=== PATIENT | female | born 1955 | race Caucasian/White ===

== ENCOUNTER 2016-11-13 04:07 | Inpatient (IN) | payer MEDICARE ==
[2016-11-13] VITALS (21 sets, daily range): BP systolic 96–153; BP diastolic 43–74; PULSE 68–95; RESP 15–25; O2SAT 95–100
[2016-11-13] MEDS ORDERED: 0.9% Sodium Chloride 1,000 ML ONE (04:17)
[2016-11-13] MEDS ORDERED: Heparin 1,000 Unit/mL 10 mL Inj ONE ×2 (04:17→09:08)
[2016-11-13] MEDS ORDERED: Heparin 1,000 Units/500 mL NS Premix IV ONE ×2 (04:17→09:11)
--- NOTE | 2016-11-13 04:19 | ED.REPORT ---
HPI-Chest Pain 40 and Over Date of Service Nov 13, 2016 ED Provider: Abdulaziz Aviles MD Patient is a 61 year old female with a history of transverse myelitis who presents to the ED via EMS after she awoke with severe chest pain this morning. Patient reports that she first experienced 10/10 crushing substernal chest pain yesterday evening, which resolved after 5-10 minutes. She states that the pain radiated to both of her arms, up to her neck, jaw, and to her ears. However tonight the patient experienced this again, but this time the chest pain last for much longer. The patient became nauseated and 911 was called. She received Plavix, aspirin, and nitroglycerin 2x from EMS. Patient reports nearly complete resolution of her pain following these medications. EMS was concerned for a STEMI on initial EKG, with EKG in the ED no longer showing these changes. The patient denies a history of coronary artery disease or prior myocardial infarction. Patient states that she is partially quadriplegic due to her transverse myelitis. Patient denies shortness of breath. Nursing Notes Stated Complaint: STEMI Chief Complaint: Chest Pain Nursing Notes Reviewed: Yes Allergies: Coded Allergies: codeine (Verified Allergy, Unknown, 11/13/16) General Time Seen by MD: 04:08 Chief Complaint Chest pain Hx Obtained From: Patient Arrived By: Ambulance Sudden in Onset?: No Onset Occurred: 16 - 30 minutes ago Symptom Duration: 1 - 15 minutes Location: : Substernal Quality: Painful (crushing) Severity: Current: Pain level 1 out of 10 Severity: Maximum: Pain level 10 out of 10 Recent Healthcare: No recent doctor visit, No recent hospitalization Similar Sx Previous: Yes Past Medical History Past Medical History transverse myelitis partial quadriplegic Past Surgical History baclofen pump implant Smoking History Unknown if Ever Smoker Social History Other Social History: Good social support, , Local resident Review of Systems Respiratory: Denies: Non-productive cough, Shortness of breath Cardiovascular: Reports: Chest pain, Denies: Palpitations GI: Reports: Nausea, Denies: Vomiting Musculoskeletal: Reports: Extremity pain, Neck pain Complete sys rev & neg: except as marked. Physical Exam Initial Vital Signs Vital Signs (First) Date Time Temp Pulse Resp B/P Pulse Ox O2 Delivery O2 Flow Rate FiO2 11/13/16 04:10 36.8 84 21 140/68 100 Nasal Cannula 2 Initial VS: Reviewed, Vital signs normal Head / Eyes: Atraumatic, Normocephalic, PERRL ENT: Mucous membranes moist, Conjunctiva normal, No scleral icterus Skin: Warm, Dry, No cyanosis Neurologic: Alert, Oriented, Nonfocal Psychiatric: Mood/affect normal, Behavior normal, Normal thought content General/Constitutional: Awake, Alert, No acute distress Respiratory / Chest: Breath sounds NL, Breath sounds = bilat, No respiratory distress, No rales, No rhonchi, No wheezing Cardiovascular: Heart rate NL, Regular rhythm, Heart sounds NL, No gallop, No murmurs, No rubs Abdomen: Soft, Non-tender, No guarding, No rebound Neck: Supple, No JVD Lower Extremity / Pelvis / MS: No swelling, No edema Neurologic: Oriented X3, Speech NL partially quadriplegic Interpretation & Diagnostics Lab Results Interpretation Result Diagram: 11/13/16 0435 11/13/16 0435 Test 11/13/16 04:35 White Blood Count 6.7th/mm3 (3.8-10.1) Red Blood Count 4.05mil/mm3 (3.90-5.20) Hemoglobin 12.3g/dL (12.0-15.6) Hematocrit 38.4% (35.0-46.0) Mean Corpuscular Volume 94.8fL (81-100) Mean Corpuscular Hemoglobin 30.4pg (27.0-35.0) Mean Corpuscular Hemoglobin Concent 32.0% (32.0-37.0) Red Cell Distribution Width 12.9% (12.3-15.4) Platelet Count 273bil/L (150-400) Neutrophils (%) (Auto) 67.6% (40-74) Lymphocytes (%) (Auto) 22.1% (14-46) Monocytes (%) (Auto) 7.6% (4-12) Eosinophils (%) (Auto) 2.2% (0-5) Basophils (%) (Auto) 0.4% (0-3) Prothrombin Time 9.9sec (8.1-12.5) Prothromb Time International Ratio 0.93ratio Activated Partial Thromboplast Time 26.4sec (22.8-33.0) Sodium Level 140mEq/L (134-144) Potassium Level 4.2mEq/L (3.5-5.2) Chloride Level 106mEq/L (97-108) Carbon Dioxide Level 21mmol/L (18-29) Blood Urea Nitrogen 17mg/dL (8-27) Creatinine 0.54mg/dL (0.57-1.00) Estimat Glomerular Filtration Rate 164mL/min (>59) Glucose Level 122mg/dL (60-99) Calcium Level 8.5mg/dL (8.5-10.1) Magnesium Level 2.1mg/dL (1.6-2.6) Total Bilirubin 0.2mg/dL (0.0-1.2) Aspartate Amino Transf (AST/SGOT) 40U/L (0-50) Alanine Aminotransferase (ALT/SGPT) 16U/L (0-32) Alkaline Phosphatase 54U/L (25-165) Troponin T 0.272ug/L (0.0-0.011) Total Protein 6.3g/dL (6.4-8.4) Albumin 3.8g/dL (3.4-5.0) Hold Sequeira Top Tube Received (Received) Lab Results Interpretation: Elevated troponin ECG Interpretation ECG Interpretation: Normal Sinus rhythm, Rate 82 Inferior infarct, old Time: 04:18 Interpreted by: ED physician Normal ECG Interpretation: No acute ischemic changes X-Ray Chest Interpretation Chest Xray Interpretation: Impression: No acute cardiopulmonary process. View: Portable Interpretation / Wet Read by: Wet read ED physician Re-Eval/Medical Decision Med Decision/Clinical Course 61-year-old who has had episodes of crushing substernal chest pain the last 2 nights. Tonight she had lateral ST elevation consistent with STEMI in the field but this normalized as her pain went away after treatment with aspirin, nitroglycerin sprays 2, and Plavix. EKGs were discussed with Dr. Smith. He did not feel the slab tripper was indicated at this time but would see her this morning. She was admitted to the hospitalist service for further evaluation and treatment. She was given IV heparin, topical nitrates, and IV metoprolol in addition to the aspirin, Plavix and sublingual nitroglycerin she had received in the field. Her chest pain diminished to 2. Time of Eval: 04:25 Re-Evaluation/Progress Note: Informed the patient that she not have an acute myocardial infarction. She will not need to go to slab tripper. Patient will be admitted to the hospital for further care. All questions were addressed. Consultation #1: Referral / Consult Name: Rossy Burk MD Consulted With: Cardiology Call Returned at: 04:21 Local Delivery Driver: Agrees with eval, Agrees with plan Note: Spoke with Dr. Foster, carpenter/labor, who has viewed the patient's EKG. He agrees that original field EKG was concerning for a STEMI. However, she is no longer in the process of having a STEMI and will not need to go to the slab tripper. He will see her in the morning and act as consult. Consultation #2: Referral / Consult Name: Olivia Collins DO Consulted With: Hospitalist Call Returned at: 05:00 Local Delivery Driver: Will see patient, Agrees with eval, Agrees with plan, Accepts admit Note: Spoke with Dr. Collins, hospitalist, who agrees to accept admit. Counseled Regarding: Diagnosis, Lab results, Need for admission Discharge & Departure Primary Impression: ACS (acute coronary syndrome) Additional Impressions: Elevated troponin NSTEMI (non-ST elevated myocardial infarction) Disposition: ADMITTED TO HOSPITAL Discharge Condition All VS Reviewed: Yes Condition: Stable Referrals: Tanvi Nunez PA-C (PCP) Crit Care Except Billable Proc Time Spent: 30-74 minutes Services Performed: Patient management by me, Time spent at bedside, Reviewing test results, Reviewing imaging, Discussing patient care, Documentation in record, Time with fam/surrogate Critical Care Notes: Emergency management of chest pain with EKG changes initially consistent with STEMI but normalized. She was given multiple IV medications and admitted to the [facility] for further evaluation. Salvatoreibfreddy Attestation Portions of this note were transcribed by Juana Mariano. I, Dr. Aviles personally performed the history, physical exam and medical decision-making; I reviewed and confirmed the accuracy of the information in the transcribed note. Signed by: Gatito Villalobos, 11/13/2016 0526 copies to: Tanvi Nunez PA-C, Howard L MD Nov 13, 2016 04:19 Juana Mariano Nov 13, 2016 04:28
[2016-11-13] MEDS ORDERED: Heparin 5,000 Unit/mL Inj IVPUSH ONE (04:25)
[2016-11-13] MEDS ORDERED: Nitroglycerin 2% 1 Gm Ointment TOPICAL ONE (04:25)
[2016-11-13] MEDS ORDERED: MeTOProlol 1 mg/mL 5 mL Inj IVPUSH PRN (04:25)
[2016-11-13] MEDS ORDERED: Heparin 25K Unit/500mL 0.45 NS 25,000 UNIT in IV Premix 1 EACH IV ONE (04:25)
[2016-11-13 04:47] LABS: BASOPHILS % (AUTO) 0.4 % (0-3); EOSINOPHILS % (AUTO) 2.2 % (0-5); MONOCYTES % (AUTO) 7.6 % (4-12); Mean Corpuscular Hemoglobin 30.4 pg (27.0-35.0); Mean Corpuscular Volume 94.8 fL (81-100); NEUTROPHILS % (AUTO) 67.6 % (40-74); Platelet Count 273 bil/L (150-400)
[2016-11-13 05:05] LABS: INR 0.93 ratio
[2016-11-13 05:21] LABS: Magnesium 2.1 mg/dL (1.6-2.6)
[2016-11-13 05:24] LABS: TROPONIN T 0.272 ug/L (0.0-0.011)
[2016-11-13] MEDS ORDERED: Alum-Mag Hydrox-Simeth 30 mL Suspension PO PRN ×2 (06:35→08:15)
[2016-11-13] MEDS ORDERED: Ondansetron 2 mg/mL 2 mL Inj IVPUSH PRN ×3 (06:35→19:30)
[2016-11-13] MEDS ORDERED: PARO20TA5 (07:55)
[2016-11-13] MEDS ORDERED: NITR100C PO (07:55)
[2016-11-13] MEDS ORDERED: Polyethylene Glycol (PEG) 17 Gm Powder PO PRN (08:15)
[2016-11-13] MEDS ORDERED: Senna-Docusate 8.6-50 mg Tablet PO PRN (08:15)
[2016-11-13] MEDS ORDERED: Atropine 1 mg/10 mL (Code) Syringe IVPUSH PRN ×2 (08:15→19:30)
[2016-11-13] MEDS ORDERED: Heparin 5,000 Unit/mL Inj IVPUSH PRN (08:25)
[2016-11-13] MEDS ORDERED: Heparin 25K Unit/500mL 0.45 NS 25,000 UNIT in IV Premix 1 EACH IV SCH (08:25)
[2016-11-13] MEDS: Sodium Chloride LOK Flush 10 mL Syringe IVFLUSH SCH ×2 (08:30→16:30)
[2016-11-13] MEDS: 0.9% Sodium Chloride 1,000 ML IV SCH ×2 (08:57→19:49)
[2016-11-13] MEDS ORDERED: Nitroglycerin 50,000 mcg/250 mL D5W Premix IV ONE (09:08)
[2016-11-13] MEDS ORDERED: Heparin 5,000 Units/500 mL NS Premix IV ONE (09:09)
--- NOTE | 2016-11-13 10:22 | DRSVH ---
PROCEDURE: X-RAY CHEST ONE VIEW, PORTABLE ([id number]) INDICATIONS: STEMI TECHNIQUE: One view of the chest was acquired. COMPARISON: None. FINDINGS: Surgical changes and devices: None. Lungs and pleura: No pleural effusions or pneumothorax. Lungs are clear. Mediastinum: Mediastinal contours appear normal. Heart size is normal. Bones and chest wall: No suspicious bony lesions. Overlying soft tissues appear unremarkable. IMPRESSION: No acute cardiopulmonary disease. Dictated by: Serafin SANTANA Interpreted: Marlee Abreu MD on 11/13/2016 at 10:22 Transcribed by: REJI on 11/13/2016 at 10:22 Approved by: Marlee Abreu M.D. on 11/15/2016 at 16:04
--- NOTE | 2016-11-13 10:29 | NUR ---
Transfer to Marketing Support Specialist Pt admitted in ED, waiting on hospital bed. Pt c/o 1/10 chest pressure this morning. No c/o nausea or SOB. VSS. Pt up frequently to BSC to void with 's assistance. Orders received to place grissom catheter. Pt calm and coop with care, transferred to paving and surfacing labourer at 1028.
[2016-11-13] MEDS ORDERED: fentaNYL-PF 50 mCg/mL 2 mL Inj ONE (10:37)
--- NOTE | 2016-11-13 11:11 | CONS ---
[address] [address] CONSULTATION REPORT PATIENT: LEXY AMIN : 1955 MR#: [id number] ADMIT: 11/13/2016 JOB ID: [id number] DATE OF SERVICE: 11/13/2016 CHIEF COMPLAINT: Chest discomfort. HISTORY: The patient is a 61 years old lady with history of transverse myelitis. She had been in her usual state of health until the night before when she experienced chest discomfort for the first time. It was aching, pressure type, which she rated about 8-9/10. This persisted all night long. She was not able to sleep because of the discomfort in her chest. She thought that it was indigestion. She tried to sit up and the chest discomfort subsided in the morning. Yesterday throughout the day she had some pain in her right ear. She did not pay much attention to it but it was noticeable. When she went to bed in the evening she was fine. Then, between 2 and 3 o'clock in the morning she got up to the bathroom and when she tried to lie down in bed she developed severe chest discomfort. She rated 10/10. She waited for about 15-20 minutes before she called medics. It was associated with nausea. She denied shortness of breath or diaphoresis. She was given aspirin, Plavix, nitroglycerin, heparin and oxygen en route. By the time she arrived in the emergency department at 4:13 a.m. her chest discomfort has subsided to 1/10. The anterior ST-segment depression has normalized. PAST MEDICAL HISTORY: 1. Transverse myelitis for 22 years. 2. Hypercholesterolemia. CURRENT MEDICATIONS: 1. Paxil. 2. Macrolide. 3. Baclofen intrathecal. ALLERGIES: CODEINE causes nausea. SOCIAL HISTORY: She lives with her on [facility]. She smoked a little when she was a kid. She denies alcohol or drugs. FAMILY HISTORY: Her grandfather had a heart attack in his 80s. Her father had coronary stent. REVIEW OF SYSTEMS: All 10 systems reviewed and pertinent for she snores at night. The transverse myelitis affected her motor function. She has incomplete quadriplegia. She denied problems swallowing or breathing. Her sensory remains intact. PHYSICAL EXAMINATION: Reveals a thin middle-aged lady appearing in no acute distress. Temperature is 37.1. Blood pressure is 111/50. Pulse 76. Skin is warm and dry. Head and face have normal configuration. Anicteric sclerae. Dry mucosa. Narrow oropharynx. Neck is supple. No jugular venous distention or carotid bruits. Chest: Normal expansion. Lungs are clear to auscultation. Heart: The first and second heart sounds normal. No gallop or murmur. Abdomen: Soft, nontender. Extremities: No clubbing, cyanosis, or edema. Neurology: Awake, alert and oriented x3. Upper motor strength is 1-2/5. Lower extremity is 0/5. EKG today at 4:13 a.m. showed normal sinus rhythm rate 82 per minute. Possible old inferior infarct. BLOOD TESTS: Show hemoglobin 12.3, WBC 6.7, platelets 273. Sodium 140, potassium 4.2, chloride 106, bicarb 21, BUN 17, creatinine 0.54, glucose 122. CK 222. Troponin T 0.272. IMPRESSION: 1. Cka-[id number] myocardial infarction. 2. Transverse myelitis with incomplete quadriplegia. 3. Hypercholesterolemia. 4. Possible sleep apnea. PLAN: The patient will be treated with aspirin, beta keara, GUILLE inhibitor and statin. She will undergo coronary angiogram and possible percutaneous intervention. The risks and benefits of the procedure have been explained to the patient and her . She understands and agrees to proceed with the procedure. She will have a sleep study as an outpatient. BRADLEY
[2016-11-13] MEDS ORDERED: Protamine Sulfate 10 mg/mL 5 mL Inj ONE (11:51)
--- NOTE | 2016-11-13 12:17 | DI95 ---
[address] [address] INTERVENTIONAL CARDIAC CATHETERIZATION PATIENT: LEXY AMIN : 1955 MR#: [id number] ADMIT: 11/13/2016 JOB ID: [id number] CORRECTED REPORT DATE OF PROCEDURE: 11/13/2016 PATIENT PROFILE: The patient is a 61-year-old woman who presented with non-ST elevated myocardial infarction. PROCEDURE: 1. Retrograde left heart catheterization. 2. Selective coronary angiography. 3. Balloon angioplasty to the mid circumflex artery. 4. Left ventricular angiogram. VASCULAR CLOSURE DEVICE: Small right groin hematoma. METHOD: Retrograde left heart catheterization was performed from the right groin under 1% lidocaine local anesthesia using a 6-Jamaican sheath. Selective coronary angiogram was performed in multiple projections, including cranial and caudal angulations, with hand injected contrast via JL4 and JR4 catheters. A 3DRC catheter could not engage the right coronary ostium. Heparin 100 units/kg and Plavix 300 mg were given. A Runthrough wire was placed inside the circumflex artery. The lesion was predilated with a 2.0 and a 2.5 mm balloons. An attempt to advance a Resolute Integrity 2.25 x 22 mm and a 2.25 x 12 mm stent to the lesion was unsuccessful despite using double-wire technique and a GuideLiner. The procedure was terminated. A 5-Jamaican angulated pigtail catheter was advanced to the left ventricle and left ventricular angiogram was performed in the 30 degree CARLIN view by injecting contrast at the rate of 10 mL/second for 3 seconds. This catheter was withdrawn. Right femoral angiogram was performed. Following sheath removal, hemostasis was achieved by using a Perclose device. The patient tolerated the procedure well. She was transferred to [facility] good condition. TOTAL CONTRAST USED: 130 mL. FLUOROSCOPY TIME: 8.1 minutes. TOTAL RADIATION DOSE: 365 mGy. RESULTS: 1. Selective coronary angiography: a. The left main coronary artery is short and has minor 10% to 20% stenosis in the distal portion. b. The left anterior descending artery is transapical and has 40% to 50% stenosis in the proximal portion. The major diagonal branch appears normal. c. The circumflex artery has tandem critical 98% and 95% stenosis in the mid portion. The first obtuse marginal branch is small and has 98% stenosis at its origin. This branch is smaller than 1 mm in diameter. d. The dominant right coronary artery has minor 20% stenosis in the proximal portion. 2. Balloon angioplasty was performed to the critical mid circumflex artery lesions to achieve an excellent angiographic result with STACY-3 flow distally. There is residual 10% stenosis. 3. Left ventricular angiogram demonstrates normal left ventricular systolic function (visually estimated ejection fraction 60%). There is no wall motion abnormality. There is no mitral regurgitation. 4. There is no gradient across the aortic valve on catheter withdrawal. 5. Aortic pressure is 137/72 mmHg. Left ventricular pressure is 138/2 mmHg. 6. Left ventricular end-diastolic pressure is 29 mmHg. CONCLUSION: 1. Critical 98% and 95% stenosis of the mid circumflex artery. This was successfully treated with balloon angioplasty. 2. Moderate disease of the proximal left anterior descending. 3. Left ventricular ejection fraction 60%. 4. LVEDP is 29 mmHg. Corrected by 01/03/17 at 7:58am DOS. MTDD
--- NOTE | 2016-11-13 13:45 | NUR ---
PRELIMINARY BEDSIDE ULTRASOUND OF RIGHT GROIN IS NEGATIVE FOR PSEUDOANEURYSM AND HEMATOMA HAS BEEN COMPRESSED INTO THE SOFT TISSUE THERE IS NOT A VISIBLE ORGANIZED HEMATOMA.TRACK OOZE CONTINUES, SANDBAG TO SITE.PER DR EDUARD PAL TO INJECT TRACK WITH LIDOCAINE/EPINEPHRINE BY POLITICAL ORGANIZER PERSONNEL IF OOZING CONTINUES.
[2016-11-13] MEDS ORDERED: Artificial Tears 15 mL Ophthalmic Solution BOTH_EYES PRN (13:50)
[2016-11-13] MEDS ORDERED: prolia (14:12)
[2016-11-13] MEDS ORDERED: baclofen pump (14:15)
--- NOTE | 2016-11-13 14:19 | DRSVH ---
PROCEDURE: US DUPLEX DOPPLER UNILATERAL LEG ARTERIES, RIGHT INDICATIONS: PSEUDOANEURYSM TECHNIQUE: Color and pulse Doppler interrogation was performed of the right lower extremity arterial system, wit h image documentation. COMPARISON: None. FINDINGS: Limited sonography of the right groin demonstrates no abnormalities. No fluid collection or masses are seen. Normal appearance of the right common femoral artery and vein as is demonstrated with spectral and color-flow Doppler. IMPRESSION: No right groin pseudoaneurysm. Dictated by: Serafin Cha [facility] Interpreted: Loretta Vega MD on 11/13/2016 at 14:15 Transcribed by: EDILBERTO on 11/13/2016 at 14:19 Approved by: Loretta Vega MD, PhD on 11/14/2016 at 11:00
[2016-11-13] MEDS ORDERED: Lidocaine 1%-Epi 1:100,000 20 mL Inj ONE (14:29)
--- NOTE | 2016-11-13 15:15 | NUR ---
JUAN ANTONIO FROM SYSTEMS ACCOUNTANT HAS COMPLETED INJECTED OF RIGHT GROIN TRACK.
[2016-11-13 15:47] LABS: TROPONIN T 0.532 ug/L (0.0-0.011)
--- NOTE | 2016-11-13 16:00 | NUR ---
PATIENT TX TO ROOM 2005 IN STABLE CONDITION.RIGHT FEMORAL SITE REMAINS DRY AND INTACT, NO FURTHER OOZING, BRUISING NOTED AT SITE.PATIENT FELT THAT HER URINARY CATHETER WAS LEAKING SO I WITHDREW THE 9CC IN THE BALLOON AND REINFLATED WITH 10CC SALINE.LINEN CHANGED AND PATIENT FRESHENED.REMAINS IN SINUS RHYTHM AND PAIN FREE.
--- NOTE | 2016-11-13 18:00 | PCM.HPMED ---
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 This is second time this has occurred with previous time being yesterday morning. Yesterday morning's episode resolved in about 15 minutes or so. Patient states that she was up to the bathroom and after returning to bed she began experiencing the symptoms. Once the pain did not go away patient called EMS paramedics arrived, given Plavix, aspirin, and nitroglycerin 2. This resolved the patient's pain. Report from EMS states that there were ST elevations on EKG, although which leads are unknown at this time. Patient endorses mild dyspnea with this event but denies diaphoresis, nausea, vomiting, abdominal pain, or fever, chills. Patient states that prior episode did not migrate to some extent from middle of the chest towards the left side, but denies tearing or sharp sensation from the anterior to posterior. In the emergency department patient had a chest x-ray negative for acute cardio pulmonary disease. Troponin was initially 0.272 and increased to 0.53 to indicate NSTEMI with no additional EKG changes. CK was also elevated. Dr. Nieto was consulted from the ED to see patient and he took patient to the phlebotomist medical lab assistant this morning with plan intervention. Review of Systems: Complete review of systems performed; pertinent positives and negatives per history of present illness, all other systems reviewed and are negative Allergies Coded Allergies: codeine (Verified Allergy, Unknown, 11/13/16) Home Medications Paroxetine 20 mg tablet daily Nitrofurantoin macro crystals 100 mg capsule taken orally in the a.m. Baclofen pump Prolia PMH transverse myelitis partial quadriplegic Surgical History baclofen pump implant Family History Father and grandfather both of acute AK versus cardiac failure. Social History Hx Alcohol Use: Yes (20 years ago) Hx Substance Use: No Hx Tobacco Use: Yes Smoking Status: Former Smoker (in Young adult), Unknown if Ever Smoker Living Arrangement: with Family Additional Information The patient lives with a motorized chair due to quadriplegia Exam Vital Signs Vital Sign - Last Date Time Temp Pulse Resp B/P Pulse Ox O2 Delivery O2 Flow Rate FiO2 11/13/16 16:24 37.1 79 16 114/66 97 Room Air 11/13/16 04:46 2 Exam Gen: AOx3; NAD; comfortable HEENT: no jvd; supple; no lymphadenopathy Cardio: RRR no m/r/g; no additional S3,S4 Resp: CTA bilaterally; patient unable to sit forward; mild crackles Abd: +bs, non-tender, non-distended, baclofen pump in place Ext: No edema, pulses intact Neuro: sensation reduced in lower extremity; contractures throughout psych: good mood and affect musk: contractures but moving arms well Lab and Diagnostics Result Diagram: 11/13/1643411/13/16434 X-Rays, CTs and MRIs Chest X-ray IMPRESSION: No acute cardiopulmonary disease. Dictated by: Serafin SANTANA Interpreted: Marlee Abreu MD on 11/13/2016 at 10: 22 Duplex LE Artery IMPRESSION: No right groin pseudoaneurysm. Dictated by: Serafin SANTANA Interpreted: Loretta Vega MD on 11/13/2016 at 14:15 12-lead ECG Sinus rhythm with no ST elevations Assessment & Plan 61-year-old female who presented with severe chest pain and overall picture concerning for NSTEMI. 1.Acute NSTEMI; present on admission; ongoing -Patient presents with increasing troponin over 0.5. Dr. Nieto patient This morning -Angioplasty performed on left circumflex artery due to 98% occlusion -Patient was initially getting Plavix, aspirin, beta keara, GUILLE inhibitor, statin and heparin -Patient received Plavix load on admission -Repeat EKG in the a.m. -Continue atorvastatin, aspirin, Plavix, and nitroglycerin when necessary; metoprolol and GUILLE inhibitor if blood pressure/HR stable -Cardiology has already performed angioplasty will continue to follow; appreciate their assistance 2. Hypercholesterolemia; present admission; stable -Outpatient records indicate a mild hypercholesterolemia -Atorvastatin 20 mg daily 3. Transverse myelitis, idiopathic; present admission; stable -Patient is being treated for this outpatient with baclofen and plan to dystonia -Patient is some use of her hands and arms, will not change treatment during hospital stay Disposition: Patient was admitted to the [facility] with expected length of stay greater than 2 minutes due to severity of presenting symptoms, duration treatment, and risk of adverse events Pain Evaluation: Adequate Pain Control GI Prophylaxis: H2 keara VTE Prophylaxis: Sub-Q Heparin (Unfractionated) Resuscitation Status: CPR: Attempt Resuscitation Time spent 60 minutes Attending Statement Patient seen and examined with housestaff. Agree with all attached documentation. Charly Powers DO Nov 13, 2016 18:00 Patrick Hill MD Nov 16, 2016 09:58
--- NOTE | 2016-11-13 19:56 | NUR ---
CP Pt reports 1/10 chest discomfort. Pt calm and denies any other discomfort. Continue to monitor. VS stable.
[2016-11-13] MEDS: PARoxetine 20 mg Tablet PO SCH (22:56)
[2016-11-14] MEDS: Sodium Chloride LOK Flush 10 mL Syringe IVFLUSH SCH ×2 (00:30→08:45)
[2016-11-14 02:40] VITALS: BP 122/70; PULSE 92; RESP 20; O2SAT 96
[2016-11-14 03:00] LABS: Mean Corpuscular Hemoglobin 30.2 pg (27.0-35.0); Mean Corpuscular Volume 93.7 fL (81-100)
[2016-11-14 03:56] VITALS: PULSE 117
[2016-11-14 08:36] VITALS: BP 124/79; PULSE 86; RESP 16; O2SAT 98
[2016-11-14] MEDS: PARoxetine 20 mg Tablet PO SCH (08:44)
[2016-11-14] MEDS: 0.9% Sodium Chloride 1,000 ML IV SCH (09:13)
--- NOTE | 2016-11-14 09:14 | DRSVH ---
PROCEDURE: X-RAY CHEST ONE VIEW, PORTABLE ([id number]) INDICATIONS: Chest pain TECHNIQUE: One view of the chest was acquired. COMPARISON: [facility], CR, XR CHEST 1VW (PORTABLE), 11/13/2016, 4:23. FINDINGS: Surgical changes and devices: None. Lungs and pleura: No pleural effusions or pneumothorax. Lungs are clear. Lung volumes are increase d with flattening of the hemidiaphragms suggesting COPD. Mediastinum: Mediastinal contours appear normal. Heart size is normal. Bones and chest wall: No suspicious bony lesions. Overlying soft tissues appear unremarkable. IMPRESSION: No acute cardiopulmonary disease. Dictated by: Serafin Cha Donny Interpreted: Cristal Andersen MD on 11/14/2016 at 9:14 Transcribed by: OMARI on 11/14/2016 at 9:14 Approved by: Cristal Andersen M.D. on 11/14/2016 at 16:33
--- NOTE | 2016-11-14 10:17 | NUR ---
Case Management: IMM given and explained to pt and at 09:25. Eva BARONERN
--- NOTE | 2016-11-14 10:27 | PCM.DIMED ---
Charly Powers DO 11/14/16 1027: Discharge Instructions Date of Service Nov 14, 2016 Dates of Hospitalization Nov 13, 2016 at 05:40 Discharge Diagnosis Discharge Diagnosis NSTEMI Medication Instructions Take your medications as directed. -You are starting Plavix with a currently plan to continue this medication for 6 months. -You also need to take a baby aspirin everyday -Atorvastatin has been shown to be beneficial to prevent recurrence, however, should you experience side effects you can discuss discontinuing with your primary care doctor. Diet Heart Healthy Activity Limited until seen by PCP Patient Instructions You admitted due to chest pain with positive cardiac enzymes. This is indicative of a small heart attack or oxygen deprivation to the heart. You underwent balloon angioplasty but corrected a 98% block of your left circumflex artery, with identified moderate disease in her left anterior descending artery. We discussed changes that can be made to lifestyle to help prevent further plaque accumulation, including increasing vegetables in lowering your cholesterol. If you have any additional chest pain or shortness of breath please seek medical attention. Follow-up plan Please follow-up with primary care doctor within 1 week. Currently there is no plan to follow-up with cardiology although your primary care doctor can refer you. Follow-up Provider: Tanvi Nunez PA-C Follow-up with PCP in: 1 week Amberly Perez MD 11/14/16 1520: Discharge Instructions Attending's Statement Pt seen and examined by myself and agree with above plan. Charly Powers DO Nov 14, 2016 10:27 Amberly Perez MD Nov 14, 2016 15:20
[2016-11-14] MEDS ORDERED: ASPI81TA3 PO (10:29)
[2016-11-14] MEDS ORDERED: ATOR20TA65 PO (10:29)
[2016-11-14] MEDS ORDERED: NITR0.4T SL (10:29)
[2016-11-14] MEDS ORDERED: CLOP75TA28 PO (10:29)
[2016-11-14] MEDS ORDERED: ATEN25TA PO (11:10)
[2016-11-14 11:12] VITALS: PULSE 86
--- NOTE | 2016-11-14 11:35 | PROG NOTE ---
[address] [address] PROGRESS NOTE PATIENT: LEXY AMIN : 1955 MR#: [id number] ADMIT: 11/13/2016 JOB ID: [id number] DATE: 11/14/2016 SUBJECTIVE: The patient is a 61-year-old lady with history of transverse myelitis. She presented with non-ST elevated myocardial infarction. She underwent coronary angiogram, which demonstrated critical 98% stenosis of the mid circumflex artery. This was successfully treated with balloon angioplasty. She reports feeling well today. She denies chest discomfort, shortness of breath, orthopnea, PND. OBJECTIVE: Temperature is 37.0. Blood pressure is 124/79. Pulse 86. Head and face have normal configuration. Anicteric sclerae. Moist mucosa. Neck: Supple. No jugular venous distention or carotid bruits. Chest: Normal expansion. Lungs are clear to auscultation. Heart: The first and second heart sound normal. No gallop or murmur. Abdomen: Soft, nontender. Extremities: No clubbing, cyanosis, or edema. Large ecchymosis in the right groin. LABORATORY: Blood tests show hemoglobin 11.5, WBC 8.0, platelet 279. Sodium 138, potassium 4.2, chloride 107, bicarb 19, BUN 14, creatinine 0.47, glucose 106. Cholesterol 203, triglyceride 88, HDL 47, LDL 138. IMPRESSION: 1. Non-ST elevated myocardial infarction. 2. Status post balloon angioplasty to the mid circumflex artery. 3. Hypercholesterolemia. 4. Transverse myelitis with incomplete quadriplegia. 5. Possible sleep apnea. PLAN: The patient could be discharged from the hospital today. She will be on aspirin indefinitely. She should be on Plavix for at least one month, preferably between 3-6 months. She will be also on beta keara and statin. The patient will follow with me in 4-6 weeks. The patient will have overnight pulse oximetry as an outpatient. BRADLEY
--- NOTE | 2016-11-14 12:03 | DRSVH ---
[facility] [address] [place] [address] Echocardiogram Report Name: LEXY AMIN MStudy Date: 11/14/2016 Height: 63 in Hospital Exam Location: [facility] Weight: 162 lb Gender: Other BSA: 1.8 m2 : 1955 Age: 61 yrs BP: 122/70 mmHg Reason For Study: CHEST PAIN, CAD Ordering Physician: HOSPITALIST SVHPerformed By: Bryan Mixon Referring Physician: MAYDA ANTOINE Interpretation Summary Small left ventricular cavity with ejection fraction 65-70%. Grade I diastolic dysfunction. No valvular abnormality. Procedure: A two-dimensional transthoracic echocardiogram with color flow and Doppler was performed. The study quality was technically adequate. There is no prior echocardiogram noted for this patient. The patient was in normal sinus rhythm during the exam. Left Ventricle: The left ventricular cavity is small. There is normal left ventricular wall thickness. Proximal septal thickening is noted. The ejection fraction is estimated to be 65-70%. There are no focal wall motion abnormalities. Assessment of diastolic parameters indicates a relaxation abnormality of the left ventricle, consistent with normal filling pressures. Right Ventricle: The right ventricle is normal in size, thickness and function. Atria: The left atrial size is normal. The right atrium grossly appears normal in size. The interatrial septum is intact with no evidence for an atrial septal defect. Mitral Valve: The mitral valve leaflets appear borderline thickened, but open well. There is trace mitral regurgitation. Aortic Valve: The aortic valve is normal in structure and function. No aortic regurgitation is present. Tricuspid Valve: The tricuspid valve is normal. Pulmonary artery pressures cannot be estimated because of the lack of a measurable TR jet velocity. Pulmonic Valve: The pulmonic valve leaflets are thin and pliable; valve motion is normal. There is a trace or physiologic amount of pulmonic regurgitation. Great Vessels: The aortic root is normal size. The dimensions of the ascending aorta are normal. The pulmonary artery is normal size. The inferior vena cava was not well visualized. Pericardium/ Pleura There is no pericardial effusion. There is no pleural effusion. MMode/2D Measurements & Calculations LVIDd: 3.6 cm LA A2 area LVOT diam: 1.9 cm LV magaña. diameter/BSA LVIDs: 2.3 cm AoV Opening (cm/m^2): 2.0 FS: 35.3 % IVSd: 0.83 cm LA A4 area Ao root diam LVPWd: 0.88 cm LA length asc Aorta Diam (vol): 3.5 cm LA vol: 33.5 ml Ao Arch Diam (Prox LA vol index Trans): 2.5 cm : 18.9 ml/m2 LV sys. diameter/BSA TAPSE: 2.1 cm (cm/m^2): 1.3 Doppler Measurements & Calculations Ao V2 max: 121.2 cm/secMV E max gal MV E/A: 0.77 PA V2 max Ao max P.9 mmHg : 69.5 cm/sec Med Peak E' Gal : 86.7 cm/sec Ao mean P.2 mmHg MV A max gal PA mean PG LVOT Max Gal : 90.3 cm/sec E/E' med: 13.8 : 1.4 mmHg : 106.7 cm/sec VICTORIA(I,D): 2.4 cm sev ratio: 0.86 MV dec time: 0.16 sec Ao V2 mean LV V1 max PG PA V2 mean : 100.0 cm/sec : 53.7 cm/sec Ao V2 VTI: 24.6 cm LV V1 VTI: 21.1 cmPA pr(Accel) VICTORIA(V,D): 2.5 cm2 : 29.2 mmHg VICTORIA indexed to BSA (cm^2/m^2): 1.4 Electronically signed by: Rossy Grace on Reading Physician:11/14/2016 12:02 PM
--- NOTE | 2016-11-14 13:53 | NUR ---
Discharge Pt left the facility at 1400 via wheelchair with her and a staff member assisting. Pt was A&O, stable. Tele was removed. R peripheral IV was removed. Instructions were provided in length on the new medications the pt is starting. Pt and voiced back understanding of instructions. Pt and understood when the next doses of their meds are due and certain side effects to watch out for. Appointments have been made for follow-up. Pt left with all personal belongings as well as prescriptions from the MD.
--- NOTE | 2016-11-14 16:11 | PCM.DC.MED ---
Discharge Summary Date of Service Nov 14, 2016 Dates of Hospitalization Date of Hospital Admission Nov 13, 2016 at 05:40 Date of Discharge: Nov 14, 2016 Providers: Admitting Physician: Olivia Collins DO Primary Care Physician: Tanvi Nunez PA-C Attending Physician: Olivia Collins DO Diagnosis at Time of Discharge Diagnosis at Time of Discharge NSTEMI Procedures XRay, CTs & MRIs Chest X-ray IMPRESSION: No acute cardiopulmonary disease. Dictated by: Serafin SANTANA Interpreted: Marlee Abreu MD on 11/13/2016 at 10: 22 Duplex LE Artery IMPRESSION: No right groin pseudoaneurysm. Dictated by: Serafin SANTANA Interpreted: Loretta Vega MD on 11/13/2016 at 14:15 ECG 12 Lead Sinus rhythm with no ST elevations Cardiac Echo Impression Interpretation Summary Small left ventricular cavity with ejection fraction 65-70%. Grade I diastolic dysfunction. No valvular abnormality. Invasive Procedures Cardiac Catheterization RESULTS: 1. Selective angiography: a. The left main coronary artery is short and normal and has minor 10% to 20% stenosis in the distal portion. b. The left anterior descending artery is transapical and has 40% to 50% stenosis in the proximal portion. The major diagonal branch appears normal. c. The circumflex artery has critical 98% stenosis and 95% stenosis in the mid portion. The first obtuse marginal branch is small and has 98% stenosis at its origin. This branch is smaller than 1 mm in diameter. d. The dominant right coronary artery has minor 20% stenosis in the proximal portion. 2. Balloon angioplasty was performed to the critical mid circumflex artery lesion to achieve an excellent angiographic result with STACY-3 flow distally. There is residual 10% stenosis. 3. Left ventricular angiogram demonstrates normal left ventricular systolic function (visually estimated ejection fraction 60%). There is no wall motion abnormality. There is no mitral regurgitation. 4. There is no gradient across the aortic valve on catheter withdrawal. 5. Aortic pressure is 137/72 mmHg. Left ventricular pressure is 138/2 mmHg. 6. Left ventricular end-diastolic pressure is 29 mmHg. CONCLUSION: 1. Critical 98% stenosis of the mid circumflex artery. This was successfully treated with balloon angioplasty. 2. Moderate disease of the proximal left anterior descending. 3. Left ventricular ejection fraction 65%. 4. LVEDP is 29 mmHg. 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 This is second time this has occurred with previous time being yesterday morning. Yesterday morning's episode resolved in about 15 minutes or so. Patient states that she was up to the bathroom and after returning to bed she began experiencing the symptoms. Once the pain did not go away patient called EMS paramedics arrived, given Plavix, aspirin, and nitroglycerin 2. This resolved the patient's pain. Report from EMS states that there were ST elevations on EKG, although which leads are unknown at this time. Patient endorses mild dyspnea with this event but denies diaphoresis, nausea, vomiting, abdominal pain, or fever, chills. Patient states that prior episode did not migrate to some extent from middle of the chest towards the left side, but denies tearing or sharp sensation from the anterior to posterior. In the emergency department patient had a chest x-ray negative for acute cardio pulmonary disease. Troponin was initially 0.272 and increased to 0.53 to indicate NSTEMI with no additional EKG changes. CK was also elevated. Dr. Nieto was consulted from the ED to see patient and he took patient to the wheelabrator operator this morning with plan intervention. Hospital Course 61-year-old female who presented with severe chest pain and overall picture concerning for NSTEMI. 1.Acute NSTEMI; present on admission; ongoing -Patient presents with increasing troponin over 0.5. -Angioplasty performed on left circumflex artery due to 98% occlusion -Patient was initially getting Plavix, aspirin, beta keara, GUILLE inhibitor, statin and heparin -Patient received Plavix load on admission -Continue atorvastatin, aspirin, Plavix, and nitroglycerin when necessary; Pt sent home with scripts -Start atenolol 25mg daily; Dr. Foster explained the need for B-keara to patient ; pt consented to follow outpatient regimen 2. Hypercholesterolemia; present admission; stable -Outpatient records indicate a mild hypercholesterolemia -Atorvastatin 20 mg daily 3. Transverse myelitis, idiopathic; present admission; stable -Patient is being treated for this outpatient with baclofen and plan to dystonia -Patient is some use of her hands and arms, will not change treatment during hospital stay Disposition: The patient is improved and in good spirits and being discharged in stable and improved condition. She is not expressing any chest pain or shortness of breath. Multiple explanations of continuing care were given to the patient including the need for Plavix for possibly up to 6 months. Scripts were explained to the patient patient states that she will be compliant with medications. Beta keara was added after the discharge instructions were signed, and Dr. Foster was able to discuss and explain the need for the atenolol. Patient was notified of one to follow-up and when to return to the emergency department should she have additional chest pain. Exam Vital Signs (Last) Date Time Temp Pulse Resp B/P Pulse Ox O2 Delivery O2 Flow Rate FiO2 11/14/16 11:12 86 11/14/16 08:36 37.0 16 124/79 98 Room Air 11/13/16 04:46 2 Exam Gen: AOx3; NAD; comfortable HEENT: no jvd; supple; no lymphadenopathy Cardio: RRR no m/r/g; Resp: CTA bilaterally; patient unable to sit forward Abd: +bs, non-tender, non-distended, baclofen pump in place Ext: No edema, pulses intact Neuro: sensation reduced in lower extremity; contractures throughout psych: good mood and affect musk: contractures but moving arms well Test 11/13/16 04:35 11/13/16 14:36 11/14/16 02:30 11/14/16 08:40 Neutrophils (%) (Auto) 67.6% (40-74) Lymphocytes (%) (Auto) 22.1% (14-46) Monocytes (%) (Auto) 7.6% (4-12) Eosinophils (%) (Auto) 2.2% (0-5) Basophils (%) (Auto) 0.4% (0-3) Prothrombin Time 9.9sec (8.1-12.5) Prothromb Time International Ratio 0.93ratio Magnesium Level 2.1mg/dL (1.6-2.6) Total Bilirubin 0.2mg/dL (0.0-1.2) Aspartate Amino Transf (AST/SGOT) 40U/L (0-50) Alanine Aminotransferase (ALT/SGPT) 16U/L (0-32) Alkaline Phosphatase 54U/L (25-165) Total Protein 6.3g/dL (6.4-8.4) Albumin 3.8g/dL (3.4-5.0) Hold Sequeira Top Tube Received (Received) Total Creatine Kinase 270U/L (21-215) Creatine Kinase MB 18.4ng/mL (0.0-5.3) Creatine Kinase MB % 6.8% (0.0-5.0) Troponin T 0.532ug/L (0.0-0.011) White Blood Count 8.0th/mm3 (3.8-10.1) Red Blood Count 3.81mil/mm3 (3.90-5.20) Hemoglobin 11.5g/dL (12.0-15.6) Hematocrit 35.7% (35.0-46.0) Mean Corpuscular Volume 93.7fL (81-100) Mean Corpuscular Hemoglobin 30.2pg (27.0-35.0) Mean Corpuscular Hemoglobin Concent 32.2% (32.0-37.0) Red Cell Distribution Width 13.4% (12.3-15.4) Platelet Count 279bil/L (150-400) Sodium Level 138mEq/L (134-144) Potassium Level 4.2mEq/L (3.5-5.2) Chloride Level 107mEq/L (97-108) Carbon Dioxide Level 19mmol/L (18-29) Blood Urea Nitrogen 14mg/dL (8-27) Creatinine 0.47mg/dL (0.57-1.00) Estimat Glomerular Filtration Rate 192mL/min (>59) Glucose Level 106mg/dL (60-99) Calcium Level 8.2mg/dL (8.5-10.1) Triglycerides Level 88mg/dL (0-149) Cholesterol Level 203mg/dL (100-199) LDL Cholesterol, Calculated 138.400mg/dL (0-99) VLDL Cholesterol 17.600mg/dL HDL Cholesterol 47mg/dL (>39) Cholesterol/HDL Ratio 4.32 (0.0-4.4) Activated Partial Thromboplast Time 27.1sec (22.8-33.0) Discharge Medications Discharge Medications Aspirin Chew (Aspirin Chew) 81 Mg Chew 81 MG PO DAILY Prescribed by: CHARLY ANTOINE DO Atenolol (Atenolol) 25 Mg Tablet 25 MG PO DAILY Prescribed by: CHARLY ANTOINE DO Atorvastatin Calcium (Atorvastatin Calcium) 20 Mg Tablet 20 MG PO HS Prescribed by: CHARLY ANTOINE DO Clopidogrel (Clopidogrel) 75 Mg Tablet 75 MG PO DAILY Prescribed by: CHARLY ANTOINE, DO Nitrofurantoin Macrocrystal (Nitrofurantoin Macrocrystal) 100 Mg Capsule 100 PO QAM (Reported) Paroxetine (Paroxetine) 20 Mg Tablet 20 DAILY (Reported) As needed Nitroglycerin SL (Nitrostat) 0.4 Mg Tab.subl 0.4 MG SL Q5MIN PRN PRN For Chest Pain Prescribed by: CHARLY ANTOINE DO Miscellaneous Medications ([prolia]) (Reported) ([baclofen pump]) (Reported) Additional med instructions Take your medications as directed. -You are starting Plavix with a currently plan to continue this medication for 6 months. -You also need to take a baby aspirin everyday -Atorvastatin has been shown to be beneficial to prevent recurrence, however, should you experience side effects you can discuss discontinuing with your primary care doctor. Followup Plan Follow-up plan Please follow-up with primary care doctor within 1 week. Currently there is no plan to follow-up with cardiology although your primary care doctor can refer you. Discharge Diet: Heart Healthy Discharge Activity: Limited until seen by PCP Patient Instructions You admitted due to chest pain with positive cardiac enzymes. This is indicative of a small heart attack or oxygen deprivation to the heart. You underwent balloon angioplasty but corrected a 98% block of your left circumflex artery, with identified moderate disease in her left anterior descending artery. We discussed changes that can be made to lifestyle to help prevent further plaque accumulation, including increasing vegetables in lowering your cholesterol. If you have any additional chest pain or shortness of breath please seek medical attention. Follow-up Provider: Tanvi Nunez PA-C Follow-up with PCP in: 1 week Attending Statement Patient seen and examined by myself and agree with above plan. Charly Antoine DO Nov 14, 2016 16:11 Amberly Perez MD Nov 15, 2016 07:17
== END 2016-11-14 13:50 | disposition home or self-care (01) | DRG 251 ==
LOC: SED 04:07 → OFED 05:40 → OBSVTOIN 05:40 → OFED 05:50 → PCC 15:38
PROVIDERS: ADMIT Internal Medicine; ATTEND Hospitalist
PROC: 02703ZZ Dilation of Coronary Artery, One Artery, Percutaneous Approach (ICD-10-PCS; principal; 2016-11-13)
PROC: 4A023N7 Measurement of Cardiac Sampling and Pressure, Left Heart, Percutaneous Approach (ICD-10-PCS; 2016-11-13)
PROC: B2111ZZ Fluoroscopy of Multiple Coronary Arteries using Low Osmolar Contrast (ICD-10-PCS; 2016-11-13)
DX: I21.4 Non-ST elevation (NSTEMI) myocardial infarction (principal); G37.3 Acute transverse myelitis in demyelinating disease of central nervous system; E78.00 Pure hypercholesterolemia, unspecified